=== PATIENT | female | born 1960 | race Two or more races ===

== ENCOUNTER 2025-01-07 15:30 | Outpatient (RCR) | payer MEDICAID, SELFPAY ==
--- NOTE | 2024-12-29 16:07 | PTNOTE_ITS ---
PT OP Initial Eval Patient Information Outpatient Physical Therapy Treatment Date: 12/29/24 Visit Reasons: back pain Medical Diagnosis: M54.16 Treatment Dx #1: Back Pain Start of Care: 12/29/24 Date of Onset: 2 years ago Smoking Status Smoking Status: Never smoker Initial Assessment Subjective: Pt is a 64 y/o female reports of chronic back pain (09/18) with BLE numbness worsening since 2 years ago. Pt had back surgery ~ 9 years ago where there's plate and screws in the back due to 3 disc bulge. Pt has not seen surgeon recently since he retired. Pt has limitation with sitting, standing, walking, chores, self care, cooking, cleaning, lifting, and performing recreational activities. Objective: L/S AROM: all motions are 50% towards end range except extension to neutral Hip PROM: all motions are WFL except IR bilaterally Hip MMTs: grossly 3+/5 Special Test (+) slump (+) SLR Muscle Length: Hs tightness Active SLR: 30 deg Assessment: Pt demonstrate back pain with BLE weakness leading to difficulty with ADLs. Pt will benefit from physical therapy to increase mobility, strength, and work on flexibility. Short Term and Senior Care Goals 1) Increase L/S AROM WFL in 6 wks to be able to perform chores 2) Increase core strength WFL in 6 wks to be able to perform recreational activities 3) Increase hip MMTs grossly to 4-/5 in 6 wks to be able to walk more than 30 mins 4) Increase BLE flexibility in 6 wks to be able to perform self care activities 5) Indep with HEP Treatment Plan 1) Manual Therapy 2) Therapeutic Activities 3) Therapeutic Exercises 4) Modalities (ice, heat) 5) Balance Training Frequency and Duration: 2 x wk for 6 wks Certification Dates: 12/29/24 to 03/31/25 Procedure Charges OP PT Eval Mod Complex 30 minutes: Yes
--- NOTE | 2025-01-05 16:03 | PT.ODAYNRPT ---
PT Outpatient Daily Note OP Daily Note Outpatient Physical Therapy Treatment Date: 01/05/25 Visit Reasons: back pain Subjective: Pt's back is is stiff and still has pain. Pt mentioned she broke her left knee in 4 pieces a few years ago Objective: Please see flow chart for list of ther ex performed Assessment: decrease back pain reported post PT session Plan: Continue with PT Length of Time (minutes) of Treatment: 30 Minutes Procedure Charges Therapeutic Exercise 30 minutes: Yes
--- NOTE | 2025-01-07 15:53 | PT.ODAYNRPT ---
PT Outpatient Daily Note OP Daily Note Outpatient Physical Therapy Treatment Date: 01/07/25 Visit Reasons: back pain Subjective: Pt's back feels better since last session. Pt notice less intense pain. Objective: Please see flow chart for list of ther ex performed Assessment: tolerate exercises with minimal pain; improve hip flexion AROM during sktc exercise Plan: Continue with PT Length of Time (minutes) of Treatment: 30 Minutes Procedure Charges Therapeutic Exercise 30 minutes: Yes
== END 2025-01-09 23:59 | disposition home or self-care (01) ==
LOC: CPTX 15:30
PROVIDERS: PCP Physical Medicine & Rehabilitation Pain Medicine; Referring Provider Physical Medicine & Rehabilitation Pain Medicine; Visit Provider Physical Medicine & Rehabilitation Pain Medicine
DX: M54.16 Radiculopathy, lumbar region (principal); R26.2 Difficulty in walking, not elsewhere classified
CPT/HCPCS: 97110; 97162

== ENCOUNTER 2025-02-03 15:00 | Outpatient (RCR) | payer MEDICAID, SELFPAY ==
--- NOTE | 2025-01-12 16:04 | PT.ODAYNRPT ---
PT Outpatient Daily Note OP Daily Note Outpatient Physical Therapy Treatment Date: 01/12/25 Visit Reasons: Back pain Subjective: Pt's back is better. Pt wants to heat since it helps the pain. Objective: Please see flow chart for list of ther ex performed Assessment: added sci fit to exercise program with good tolerance. Pt is progressing with nerve flossing and has been able to complete in sitting position today Plan: Continue with PT Length of Time (minutes) of Treatment: 30 Minutes Procedure Charges Therapeutic Exercise 30 minutes: Yes
--- NOTE | 2025-01-14 16:05 | PT.ODAYNRPT ---
PT Outpatient Daily Note OP Daily Note Outpatient Physical Therapy Treatment Date: 01/14/25 Visit Reasons: Back pain Subjective: Pt's back is stiff today. Pt is having difficulty doing the pelvis tilt. Objective: Please see flow chart for list of ther ex performed Assessment: pelvis tilt was withheld today due to pain. Added side step with good tolerance Plan: Continue with PT Length of Time (minutes) of Treatment: 30 Minutes Procedure Charges Therapeutic Exercise 30 minutes: Yes
--- NOTE | 2025-01-21 13:51 | PT.ODAYNRPT ---
PT Outpatient Daily Note OP Daily Note Outpatient Physical Therapy Treatment Date: 01/21/25 Visit Reasons: Back pain Subjective: Pt reports back has been feeling better since starting PT. Objective: Please see flow sheet for ther ex list. Assessment: Pt educated on log roll technique to transfer from supine to sit. Plan: Continue with pOC. Length of Time (minutes) of Treatment: 30 Minutes Procedure Charges Therapeutic Exercise 30 minutes: Yes
--- NOTE | 2025-01-28 15:58 | PT.ODAYNRPT ---
PT Outpatient Daily Note OP Daily Note Outpatient Physical Therapy Treatment Date: 01/28/25 Visit Reasons: Back pain Subjective: Pt's back feels much better. Pt wants to continue physical therapy. Pt notice walking, standing, and performing chores are getting easier. Objective: Please see flow chart for list of ther ex performed Assessment: demonstrate improved L/S and hip mobility; advance patient to more closed chain exercises focusing on hip strengthening Plan: Continue with PT Length of Time (minutes) of Treatment: 30 Minutes Procedure Charges Therapeutic Exercise 30 minutes: Yes
--- NOTE | 2025-02-03 15:20 | PT.ODS1RPT ---
PT OP Progress/Discharge Note Date of Service: 02/03/25 Progress Note/DC Note Progress Note/Discharge Note: Progress Note Patient Information Visit Reasons: Back pain Medical Diagnosis: M54.16 Treatment Dx #1: Back Pain Service Continue Service or Discharge: Continue Service Certification Date Certification Dates: 02/03/25 to 05/06/25 Status Subjective: Pt's back feels much better. Pt has been able to stand, walk, perform chores, and cook with less limitation. Pt also notice less numbness in the legs. Pt will like to continue physical therapy to work on overall mobility and strength. Objective: L/S AROM: all motions are 75% towards end range with pain Hip PROM: all motions are WNL except IR Hip MMTs: grossly 3+/5 Active SLR: 60 deg Assessment: Pt is progressing with L/S mobility and core strength allowing her to resume ADLs, chores, ambulate, and cook with less limitation. Pt has not met set goals and will continue to benefit from physical therapy; thank you for your referrals. Plan: Continue with PT/POC and add 8 sessions (2 x wk for 4 wks) Procedure Charges Therapeutic Exercise 30 minutes: Yes
== END 2025-02-08 23:59 | disposition home or self-care (01) ==
LOC: CPTX 15:00
PROVIDERS: PCP Physical Medicine & Rehabilitation Pain Medicine; Referring Provider Physical Medicine & Rehabilitation Pain Medicine; Visit Provider Physical Medicine & Rehabilitation Pain Medicine
DX: M54.16 Radiculopathy, lumbar region (principal); R26.2 Difficulty in walking, not elsewhere classified; G89.29 Other chronic pain
CPT/HCPCS: 97110

== ENCOUNTER 2025-02-11 15:30 | Outpatient (RCR) | payer MEDICAID, SELFPAY ==
--- NOTE | 2025-02-09 14:33 | PT.ODAYNRPT ---
PT Outpatient Daily Note OP Daily Note Outpatient Physical Therapy Treatment Date: 02/09/25 Visit Reasons: back pain Subjective: Pt's back is better and legs are getting stronger. Pt does not have concerns and wants to continue PT Objective: Please see flow chart for list of ther ex performed Assessment: tolerate exercises with minimal pain; added resistance to monster walk and side step exercises with good form Plan: Continue with PT Length of Time (minutes) of Treatment: 30 Minutes Procedure Charges Therapeutic Exercise 30 minutes: Yes
--- NOTE | 2025-02-11 16:20 | PT.ODAYNRPT ---
PT Outpatient Daily Note OP Daily Note Outpatient Physical Therapy Treatment Date: 02/11/25 Visit Reasons: back pain Subjective: Pt reports back symptoms have improved. Objective: Please see flow sheet for ther ex list. Assessment: Pt familiar with interventions resulting in good mechanics. Pt has difficulty getting up from squat machine due to LE strength deficits requiring Min/mod A to get up from machine. Plan: Continue with poC. Length of Time (minutes) of Treatment: 30 Minutes Procedure Charges Therapeutic Exercise 30 minutes: Yes
== END 2025-03-11 23:59 | disposition home or self-care (01) ==
LOC: CPTX 15:30
PROVIDERS: PCP Physical Medicine & Rehabilitation Pain Medicine; Referring Provider Physical Medicine & Rehabilitation Pain Medicine; Visit Provider Physical Medicine & Rehabilitation Pain Medicine
DX: M54.16 Radiculopathy, lumbar region (principal); R26.2 Difficulty in walking, not elsewhere classified; R53.1 Weakness
CPT/HCPCS: 97110